=== PATIENT | female | born 1990 | race Caucasian/White ===

== ENCOUNTER 2018-08-31 13:53 | Emergency (ER) | payer OTHER ==
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
[2018-08-31 15:11] VITALS: BP 139/100; TEMP 98.8; O2SAT 100
== END 2018-08-31 14:55 | disposition home or self-care (01) ==
LOC: ER 13:53
DX: Z04.41 Encounter for examination and observation following alleged adult rape (principal); F41.9 Anxiety disorder, unspecified; F32.9 Major depressive disorder, single episode, unspecified

== ENCOUNTER 2019-01-08 16:09 | Emergency (ER) | payer OTHER ==
[2019-01-08] MEDS ORDERED: SODIUM CHLORIDE 0.9% 1000ML 1,000 ML IVS ONE (16:35)
[2019-01-08] MEDS ORDERED: ACETAMINOPHEN-CAFF-BUTALBITAL 1 EA TAB PO ONE (16:35)
[2019-01-08] MEDS ORDERED: ONDANSETRON ODT 8 MG TAB SL ONE (16:35)
[2019-01-08] MEDS ORDERED: PIPERACILLIN/TAZOBACTAM 3.375 GM in SODIUM CHLORIDE 0.9% 100ML 100 ML IVPB ONE (17:29)
[2019-01-08] MEDS ORDERED: PIPERACILLIN/TAZOBACTAM 3.375 GM VIAL IVPB ONE (17:38)
[2019-01-08] MEDS ORDERED: SODIUM CHLORIDE 0.9% 100ML 100 ML IVPB ONE (17:38)
--- NOTE | 2019-01-08 18:24 | ED.PDOC ---
History of Present Illness - General Chief Complaint: General Stated Complaint: cramping, dizziness Time Seen by Provider: 01/08/19 16:11 Source: patient Exam Limitations: no limitations - History of Present Illness Initial Comments: the patient is a 28-year-old female presenting to the emergency room secondary to about 8 hours of some nausea along with increasing lower abdominal pain primarily to the right. No definite contractions. Mild back pain on that side as well. No vomiting just nausea. No fever. She has had a history of labor with her last . No reported vaginal discharge or vaginal bleeding. No regular contraction-type pain. Low resolution ultrasound here by me shows an anterior placenta, adequate fluid, active , heart tones in the 140s. Most of the abdominal pain is just to the right of the uterus. Fundus is appropriately at the umbilicus. According to her due date she is currently 20 weeks and 3 days along. Her dry dip worker is Dr. Vanegas.the patient reports she recently completed a course of antibiotics for bacterial vaginosis. Timing/Duration: 4-6 hours, constant, getting worse Severity: moderate Improving Factors: nothing Worsening Factors: nothing Associated Symptoms: loss of appetite, malaise, nausea/vomiting Allergies/Adverse Reactions: Allergies NO KNOWN ALLERGY Allergy (Unverified 05/17/14 18:18) Home Medications: Ambulatory Orders Citalopram Hydrobromide [Citalopram] 40 mg PO DAILY 01/08/19 Vit W/ Ferrous Fumara [] 1 tab PO DAILY 01/08/19 Review of Systems - Review of Systems Constitutional: States: no symptoms reported EENTM: States: no symptoms reported Respiratory: States: no symptoms reported Cardiology: States: no symptoms reported Gastrointestinal/Abdominal: States: abdominal pain, nausea Genitourinary: States: no symptoms reported Musculoskeletal: States: no symptoms reported Skin: States: no symptoms reported Neurological: States: other - mild dizziness Endocrine: States: no symptoms reported Hematologic/Lymphatic: States: no symptoms reported All other Systems: No Change from Baseline Past Medical History (General) - Patient Medical History Hx Seizures: No Hx Stroke: No Hx Dementia: No Hx Asthma: No Hx of COPD: No Hx Cardiac Disorders: No Hx Congestive Heart Failure: No Hx Pacemaker: No Hx Hypertension: No Hx Thyroid Disease: No Hx Diabetes: No Hx Gastroesophageal Reflux: No Hx Renal Disease: No Hx Cancer: No Hx of HIV: No Hx Hepatitis C: No Hx MRSA: No Surgical History: no surgical history - Vaccination History Hx Tetanus, Diphtheria Vaccination: No Hx Influenza Vaccination: Yes - Social History Hx Tobacco Use: No Hx Alcohol Use: No Hx Substance Use: No Hx Substance Use Treatment: No Hx Depression: No - Female History Hx Last Menstrual Period: 07/18/14 Patient : Yes Expected Date of Delivery:: 08/26/17 Family Medical History - Family History Mother Family History: No Known Physical Exam - Physical Exam General Appearance: Alert, No apparent distress Eye Exam: bilateral normal Ears, Nose, Throat: hearing grossly normal, normal ENT inspection Neck: full range of motion, supple, normal inspection Respiratory: lungs clear, normal breath sounds, no respiratory distress, no accessory muscle use Cardiovascular/Chest: normal peripheral pulses, regular rate, rhythm, no edema Peripheral Pulses: radial,right: 2+, radial,left: 2+, dorsalis pedis,right: 2+, dorsalis pedis,left: 2+ Gastrointestinal/Abdominal: other - undus is at the umbilicus. There is some mild rebound tenderness to the right lower quadrant. No definite palpable mass aside from the uterus. Rectal Exam: other - pelvic exam shows mild vaginal discharge. No cervical motion tenderness. Cervical os is closed. No bleeding. 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 White blood cell count is elevated and pain is in the appropriate position. Pelvic exam was reassuring as was the initial low resolution ultrasound here in regards to the . She is not febrile and vital signs are stable. She has received a liter of IV fluids, a blood culture and has been started on Zosyn. The patient will be allowed to go by private vehicle as per her request to [facility]. She is being transferred for either an ultrasound or MRI to further evaluate the appendix. No definitive evidence of labor at this time by symptoms. nicole barreto [phone] - Results/Orders Results/Orders: 01/08/19 18:00 GC CHLAMYDIA RNA,TMA Stat are send off labs. 01/08/19 18:05 BLOOD CULTURE Stat Laboratory Results - last 24 hr 01/08/19 01/08/19 01/08/19 16:45 16:45 16:45 WBC 18.0 H RBC 4.08 L Hgb 13.0 Hct 38.8 MCV 95.0 MCH 32.0 H MCHC 33.6 RDW 12.9 Plt Count 337 MPV 7.7 Absolute Neuts (auto) 16.10 H Absolute Lymphs (auto) 1.00 Absolute Monos (auto) 0.80 Absolute Eos (auto) 0.10 Absolute Basos (auto) 0.10 Neutrophils % 89.4 H Lymphocytes % 5.6 L Monocytes % 4.2 Eosinophils % 0.4 L Basophils % 0.4 Sodium 132 L Potassium 3.7 Chloride 96 L Carbon Dioxide 23 Anion Gap 16.7 BUN 11 Creatinine 0.47 L BUN/Creatinine Ratio 23.4 H Random Glucose 85 Serum Osmolality 263.2 L Lactic Acid 0.8 Calcium 9.6 Total Bilirubin 0.4 AST 16 ALT 13 Alkaline Phosphatase 59 Serum Total Protein 7.0 Albumin 3.6 Globulin 3.4 Albumin/Globulin Ratio 1.1 Amylase 50 Lipase 27 TSH 1.12 Urine Color Urine Appearance Urine pH Ur Specific [place] Urine Protein Urine Glucose (UA) Urine Ketones Urine Blood Urine Nitrite Urine Bilirubin Urine Urobilinogen Ur Leukocyte Esterase Urine RBC Urine WBC Ur Epithelial Cells Amorphous Sediment Urine Bacteria 01/08/19 16:45 WBC RBC Hgb Hct MCV MCH MCHC RDW Plt Count MPV Absolute Neuts (auto) Absolute Lymphs (auto) Absolute Monos (auto) Absolute Eos (auto) Absolute Basos (auto) Neutrophils % Lymphocytes % Monocytes % Eosinophils % Basophils % Sodium Potassium Chloride Carbon Dioxide Anion Gap BUN Creatinine BUN/Creatinine Ratio Random Glucose Serum Osmolality Lactic Acid Calcium Total Bilirubin AST ALT Alkaline Phosphatase Serum Total Protein Albumin Globulin Albumin/Globulin Ratio Amylase Lipase TSH Urine Color Yellow Urine Appearance Cloudy Urine pH 7.5 Ur Specific [place] 1.015 Urine Protein Negative Urine Glucose (UA) Negative Urine Ketones Negative Urine Blood Negative Urine Nitrite Negative Urine Bilirubin Negative Urine Urobilinogen 0.2 Ur Leukocyte Esterase Negative Urine RBC 0 Urine WBC 0-1 Ur Epithelial Cells 1-3 Amorphous Sediment 2+ Urine Bacteria Rare Departure - Departure Clinical Impression: Abdominal pain during Qualifiers: Trimester: second trimester Qualified Code(s): O26.892 - Other specified related conditions, second trimester; R10.9 - Unspecified abdominal pain Leukocytosis Qualifiers: Leukocytosis type: unspecified Qualified Code(s): D72.829 - Elevated white blood cell count, unspecified Disposition: Transfer to Hospital Departure Forms: ED Discharge - Pt. Copy, Patient Portal Self Enrollment Referrals: Eduardo Avitia MD [Primary Care Provider] - 1-2 Weeks Home Medications: Ambulatory Orders Citalopram Hydrobromide [Citalopram] 40 mg PO DAILY 01/08/19 Vit W/ Ferrous Fumara [] 1 tab PO DAILY 01/08/19 Transfer to Outside Facility - Transfer Information Decision to Transfer Date: 01/08/19 Decision to Transfer Time: 18:36 Reason for Transfer: specialized care not available Accepting Provider:: dr joselyn mckenzie Accepting Facility: [facility]
[2019-01-08 18:55] VITALS: O2SAT 99
[2019-01-08 19:15] VITALS: TEMP 97.9
[2019-01-08 19:41] VITALS: BP 107/70
== END 2019-01-08 19:41 | disposition short-term general hospital (02) ==
LOC: ER 16:09
DX: O26.892 Other specified pregnancy related conditions, second trimester (principal); D72.829 Elevated white blood cell count, unspecified; R10.31 Right lower quadrant pain; M54.9 Dorsalgia, unspecified; O21.9 Vomiting of pregnancy, unspecified; Z3A.20 20 weeks gestation of pregnancy
CPT/HCPCS: 36415; 80053; 81001; 82150; 83605; 83690; 84443; 85025; 87040; 87210; 87491; 87502; 87591; J2543; J7030; J7050